=== PATIENT | female | born 1960 | race Caucasian/White ===

== ENCOUNTER 2018-11-17 01:39 | Outpatient (CLI) | payer BC, SELFPAY ==
--- NOTE | 2018-11-17 08:50 | DI.MAMMO_ITS ---
SYMPTOMS/DIAGNOSIS: SCREENING, Z12.31 MAMMOGRAM: Mammograms were interpreted according to the usual protocol including computer analysis with CAD system, tomosynthesis and C view imaging. The breasts are heterogeneously dense. No dominant mass or clumped microcalcification is identified in either breast. The current examination is compared with previous examinations including 06/30 and 09/30, and there has been no gross interval change in appearance in comparison with the previous studies. CONCLUSION: No specific evidence of malignancy at this time. Routine screening examinations are suggested at yearly intervals in this age group according to the ACS/ACR guidelines. Category I. Breast density Category C. MQSA ASSESSMENT OF FINDINGS: Negative. Category 1. Patient will receive a letter notifying them of these results. Bi-RADS category C. The breasts are heterogeneously dense, which may obscure small masses.
[2018-11-17 09:45] LABS: Calculated LDL 81; Cholesterol 173 mg/dL (50-200); HDL Cholesterol 67 mg/dL (40-60); TSH 1.75 uIU/mL (0.358-3.74); Triglyceride 125 mg/dL (30-150)
== END 2018-11-17 01:59 ==
PROVIDERS: PCP Emergency Medicine; Visit Provider Emergency Medicine
DX: Z12.31 Encounter for screening mammogram for malignant neoplasm of breast (principal); E03.9 Hypothyroidism, unspecified
CPT/HCPCS: 36415; 77063; 77067; 80061; 83721; 84443

== ENCOUNTER 2019-11-11 03:26 | Outpatient (CLI) | payer BC, SELFPAY ==
[2019-11-11 12:26] LABS: TSH 2.66 uIU/mL (0.36-3.74)
== END 2019-11-11 03:46 ==
PROVIDERS: PCP Emergency Medicine; Visit Provider Emergency Medicine
DX: E03.9 Hypothyroidism, unspecified (principal)
CPT/HCPCS: 36415; 84443

== ENCOUNTER 2020-09-12 12:47 | Outpatient (REF) | payer BC, SELFPAY ==
[2020-09-12 21:07] LABS: HCT 42.9 % (36.0-46.0); HGB 14.5 g/dL (11.2-15.7); MCHC 33.8 % (32.0-36.0); MCV 91.9 fL (80-95); MPV 11.7 fL (8.0-11.0); Platelet Count 268 10^3/uL (130-400); RBC 4.67 10^6/uL (3.93-5.22); RDW 12.1 % (11.7-14.6); RDW-SD 40.8 fL; WBC 4.98 10^3/uL (4.4-10.8)
[2020-09-12 21:09] LABS: ESR 8 mm//hr (0-30)
[2020-09-12 21:24] LABS: C-Reactive Protein 2.05 mg/dL (0.0-0.3); TSH 2.51 uIU/mL (0.36-3.74)
== END 2020-09-12 12:48 | disposition home or self-care (01) ==
LOC: LBN 12:47
PROVIDERS: PCP Emergency Medicine; Visit Provider Emergency Medicine
DX: E03.9 Hypothyroidism, unspecified (principal); R19.7 Diarrhea, unspecified
CPT/HCPCS: 85027; 85652; 84443; 86140

== ENCOUNTER 2020-09-16 07:17 | Outpatient (REF) | payer BC, SELFPAY | END 2020-09-16 07:18 | disposition home or self-care (01) | LOC: LBN 07:17 | PROVIDERS: PCP Emergency Medicine; Visit Provider Emergency Medicine | DX: R19.7 Diarrhea, unspecified (principal) | CPT/HCPCS: 87329 ==

== ENCOUNTER 2020-10-31 03:26 | Outpatient (CLI) | payer BC, SELFPAY ==
[2020-10-31 08:59] LABS: C-Reactive Protein 0.15 mg/dL (0.0-0.3)
== END 2020-10-31 03:27 | disposition home or self-care (01) ==
PROVIDERS: PCP Emergency Medicine; Visit Provider Emergency Medicine
DX: R19.7 Diarrhea, unspecified (principal)
CPT/HCPCS: 36415; 86140

== ENCOUNTER 2020-12-05 14:12 | Outpatient (REF) | payer BC, SELFPAY ==
--- NOTE | 2020-12-05 13:00 | PAPFT_PTH ---
PATIENT: Melodie Renner LOC: [facility] U#:[id number] AGE/SX: 60/F ROOM: RE12/05/[address]: Shoaib Mon DO : 1960 BED: DIS: 12/05/2020 SPEC #: [id number] RECD: 12/05/20 18:37 STATUS: JOVON RESally #: [id number] KELLEE: 12/05/20 13:[address]: Shoaib Mon DEPT: [facility] Cytology RECD BY: Misty Black Tissues: 1 - CX/ENDOCX FOR PAP SMEARS Procedures: PAP THIN PREP/UVM Screening HPV DNA PROBE Comments: [id number]
== END 2020-12-05 14:13 | disposition home or self-care (01) ==
LOC: LBN 14:12
PROVIDERS: PCP Emergency Medicine; Visit Provider Emergency Medicine
DX: Z12.4 Encounter for screening for malignant neoplasm of cervix (principal); Z11.51 Encounter for screening for human papillomavirus (HPV)
CPT/HCPCS: 88142; 87624

== ENCOUNTER 2020-12-21 01:29 | Outpatient (CLI) | payer BC, SELFPAY ==
--- NOTE | 2020-12-21 08:25 | DI.MAMMO_ITS ---
Exam(s) MAMMO SCREENING EXAM: MAMMO SCREENING CLINICAL HISTORY: screening,Z12.39 TECHNIQUE: Mammograms were interpreted according to the usual protocol including computer analysis w [employer] CAD system, tomosynthesis and C-view imaging. COMPARISON: 2010 through 2018 FINDINGS: The breasts are composed of heterogeneously dense fibroglandular densities, Breast Density category C . No suspicious masses or suspicious microcalcifications are seen. No skin thickening or abnormal axillary lymph nodes are seen. There has been no significant change from prior exams. IMPRESSION: BI-RADS Category 1, Negative mammogram. Yearly screening mammography is recommended. Breast Density Category C, heterogeneously Dense. The mammogram demonstrates the patient's breast tissue is dense. Dense breast tissue is very common a nd is not abnormal but dense breast tissue can make it harder to find cancer on a mammogram. Also, de nse breast tissue may increase breast cancer risk. This information about the result of the mammogram report was provided to the patient to raise their awareness. Use this report when you speak with the patient about their risks for breast cancer, which includes their family history. At that time, you may recommend additional screening tests (Ultrasound or MRI) as they might be useful based on their r isk. A negative radiographic report should not delay biopsy if a dominant or clinically suspicious mass is present. Up to ten percent of cancers are not identified on mammography. A negative report may reinforce clinical impression. Adenosis and dense breasts may obscure an underlying neoplasm. False positive reports average 6 to 10%.
== END 2020-12-21 01:49 ==
PROVIDERS: PCP Emergency Medicine; Visit Provider Emergency Medicine
DX: Z12.31 Encounter for screening mammogram for malignant neoplasm of breast (principal); R92.8 Other abnormal and inconclusive findings on diagnostic imaging of breast
CPT/HCPCS: 77063; 77067

== ENCOUNTER 2022-01-15 03:17 | Outpatient (CLI) | payer BC, SELFPAY ==
[2022-01-15 13:13] LABS: TSH (W/Ref FT4) 2.57 uIU/mL (0.36-3.74)
== END 2022-01-15 03:18 | disposition home or self-care (01) ==
LOC: LOS 03:18
PROVIDERS: PCP Family Medicine; Visit Provider Family Medicine
DX: E03.9 Hypothyroidism, unspecified (principal)
CPT/HCPCS: 36415; 84443

== ENCOUNTER 2022-05-22 10:24 | Outpatient (CLI) | payer BC, SELFPAY ==
[2022-05-22 14:39] LABS: HCT 41.2 % (36.0-46.0); HGB 14.1 g/dL (11.2-15.7); MCH 31.1 pg (27.0-33.0); MCHC 34.2 % (32.0-36.0); MCV 91 fL (80-95); MPV 10.3 fL (8.0-11.0); Platelet Count 276 10^3/uL (130-400); RBC 4.54 10^6/uL (3.93-5.22); RDW 12.3 % (11.7-14.6); RDW-SD 40.4 fL; WBC 8.69 10^3/uL (4.4-10.8)
[2022-05-22 15:25] LABS: Anion Gap 6.8 mmol/L (3-11); BUN 33 mg/dL (7-18); CO2 30.2 mmol/L (21.0-32.0); CREATININE 1.1 mg/dL (0.55-1.02); Chloride 104 mmol/L (98-107); Estimated GFR 56.46 (mL/min/1.73m2); FREE T4 1.01 ng/dL (0.76-1.46); Glucose 58 mg/dL (74-106); Potassium 4.3 mmol/L (3.5-5.1); Sodium 141 mmol/L (136-145); TSH 3.22 uIU/mL (0.36-3.74)
== END 2022-05-22 10:25 | disposition home or self-care (01) ==
LOC: LBO 10:25
PROVIDERS: PCP Family Medicine; Visit Provider Nurse Practitioner Family
DX: R23.2 Flushing (principal)
CPT/HCPCS: 36415; 80048; 85027; 84439; 84443

== ENCOUNTER 2022-05-27 03:13 | Outpatient (CLI) | payer BC, SELFPAY ==
[2022-05-27 14:25] LABS: Hemoglobin A1C 5.4 % (<5.7)
[2022-05-27 14:51] LABS: Glucose 74 mg/dL (74-106)
== END 2022-05-27 03:14 | disposition home or self-care (01) ==
LOC: LBO 03:14
PROVIDERS: Nurse Practitioner Family; PCP Family Medicine; Visit Provider Family Medicine
DX: E16.2 Hypoglycemia, unspecified (principal); E03.9 Hypothyroidism, unspecified
CPT/HCPCS: 36415; 82947; 83036

== ENCOUNTER 2023-05-05 22:14 | Outpatient (REF) | payer BC, SELFPAY | END 2023-05-05 22:15 | disposition home or self-care (01) | LOC: NCHCN 22:14 | PROVIDERS: PCP Family Medicine; Visit Provider Physician Assistant | DX: J02.9 Acute pharyngitis, unspecified (principal) | CPT/HCPCS: 87070 ==

== ENCOUNTER 2023-08-21 10:20 | Outpatient (REF) | payer BC, SELFPAY | END 2023-08-21 10:21 | disposition home or self-care (01) | LOC: LBN 10:20 | PROVIDERS: PCP Family Medicine; Referring Provider Nurse Practitioner Family; Visit Provider Nurse Practitioner Family | DX: R30.0 Dysuria (principal); N39.0 Urinary tract infection, site not specified | CPT/HCPCS: 87077; 87086; 87186 ==

== ENCOUNTER 2023-09-15 05:40 | Outpatient (CLI) | payer BC, SELFPAY ==
[2023-09-15 13:04] LABS: ALT 42 U/L (14-59); AST 28 U/L (15-37); Albumin 3.5 g/dL (3.4-5.0); Alkaline Phosphatase 81 U/L (46-116); Anion Gap 7.7 mmol/L (3-11); BUN 17 mg/dL (7-18); Bilirubin, Total 0.5 mg/dL (0.2-1.0); CO2 29.3 mmol/L (21.0-32.0); CREATININE 0.9 mg/dL (0.55-1.02); Calcium 9.1 mg/dL (8.5-10.1); Calculated LDL 106 mg/dL (<100); Chloride 109 mmol/L (98-107); Cholesterol 182 mg/dL (<200); Estimated GFR 71.39 (mL/min/1.73m2); Glucose 95 mg/dL (74-106); HDL Cholesterol 67 mg/dL (40-60); Potassium 4.6 mmol/L (3.5-5.1); Sodium 146 mmol/L (136-145); TSH (W/Ref FT4) 2.55 uIU/mL (0.36-3.74); Total Protein 7.2 g/dL (6.4-8.2); Triglyceride 49 mg/dL (<150)
== END 2023-09-15 05:41 | disposition home or self-care (01) ==
PROVIDERS: PCP Family Medicine; Visit Provider Family Medicine
DX: E03.9 Hypothyroidism, unspecified (principal); Z00.00 Encounter for general adult medical examination without abnormal findings; Z13.6 Encounter for screening for cardiovascular disorders
CPT/HCPCS: 36415; 80053; 80061; 84443

== ENCOUNTER → 2023-09-17 01:13 | Outpatient (CLI) | payer BC, SELFPAY ==
--- NOTE | 2023-09-17 12:15 | DI.MAMMO_ITS ---
Exam(s) MAMMO SCREENING EXAM: MAMMO SCREENING CLINICAL HISTORY: screening,z12.39 TECHNIQUE: Bilateral full field digital CC and MLO mammographic images were obtained with 3D tomosyn thesis and utilizing computer aided detection (CAD). COMPARISON: Available for comparison. FINDINGS: Masses/Architectural Distortion: None seen. Microcalcifications: No suspicious pleomorphic-type are seen. Skin Thickening/Nipple Retraction: None. IMPRESSION: 1. No significant interval change with no specific features of malignancy noted. 2. Unless there is more urgent need, screening mammography is recommended, as per [employer] guidelines. BI-RADS Category 1 - Negative Breast Density - Category C - Heterogeneously dense Breast density category C or D implies that the patient has dense breast tissue. Dense breast tissue is very common and is not abnormal but dense breast tissue can make it harder to find cancer on a ma mmogram. Also, dense breast tissue may increase their breast cancer risk. This information about the result of the mammogram report was provided to the patient to raise their awareness. Use this report when you speak with the patient about their risks for breast cancer, which includes their family hist ory. At that time, you may recommend for more screening tests (Ultrasound or MRI) as they might be us eful based on their risk. A negative radiographic report should not delay biopsy if a dominant or clinically suspicious mass is present. Up to ten percent of cancers are not identified on mammography. A negative report may reinforce clinical impression. Adenosis and dense breasts may obscure an underlying neoplasm. False positive reports average 6 to 10%. Patient will receive a letter notifying them of these results.
== END ==
PROVIDERS: PCP Family Medicine; Visit Provider Family Medicine
DX: Z12.31 Encounter for screening mammogram for malignant neoplasm of breast (principal)
CPT/HCPCS: 77063; 77067

== ENCOUNTER → 2023-12-22 02:23 | Outpatient (CLI) | payer BC, SELFPAY ==
--- NOTE | 2023-12-22 08:00 | DI.MRI_ITS ---
Exam(s) MR LOWER EXTREMITY RT WO EXAM: MR LOWER EXTREMITY RT WO CLINICAL HISTORY: proximal right hamstring strain, S76.311A TECHNIQUE: Multiplanar multisequence MRI was performed without intravenous contrast. COMPARISON: No exams were available for comparison FINDINGS: BONES/JOINTS: No fracture or contusion pattern. No bone lesions identified. MUSCULOTENDINOUS STRUCTURES: There is hyperintense signal within the hamstring tendon at the ischial tuberosity consistent with a partial tear. No muscular fatty atrophy. SOFT TISSUES: There is mild edema in the surrounding soft tissues at the proximal hamstring tendon. OTHER FINDINGS: None. IMPRESSION: Large partial tear of the hamstring tendon at its insertion site onto the ischial tuberosity. DATA REPOSITORY:
== END ==
PROVIDERS: PCP Family Medicine; Visit Provider Family Medicine
DX: S76.311A Strain of muscle, fascia and tendon of the posterior muscle group at thigh level, right thigh, initial encounter (principal); M79.89 Other specified soft tissue disorders
CPT/HCPCS: 73718

== ENCOUNTER → 2024-01-20 07:51 | Outpatient (BNVA) | payer MEDICARE, BC, SELFPAY | PROVIDERS: PCP Family Medicine; Referring Provider Family Medicine; Visit Provider Student in an Organized Health Care Education/Training Program | DX: S76.311A Strain of muscle, fascia and tendon of the posterior muscle group at thigh level, right thigh, initial encounter (principal); X50.0XXA Overexertion from strenuous movement or load, initial encounter; Y93.B9 Activity, other involving muscle strengthening exercises | CPT/HCPCS: 99203 ==

== ENCOUNTER → 2024-04-21 08:04 | Outpatient (BNVA) | payer MEDICARE, BC, SELFPAY | PROVIDERS: PCP Family Medicine; Referring Provider Family Medicine; Visit Provider Student in an Organized Health Care Education/Training Program | DX: S76.311D Strain of muscle, fascia and tendon of the posterior muscle group at thigh level, right thigh, subsequent encounter (principal); X58.XXXD Exposure to other specified factors, subsequent encounter | CPT/HCPCS: 99213 ==

== ENCOUNTER 2024-05-17 13:19 | Outpatient (CLI) | payer MEDICARE, BC, SELFPAY ==
--- NOTE | 2024-05-17 11:00 | DI.MRI_ITS ---
Exam(s) MR LOWER JOINT RT WO EXAM: MR LOWER JOINT RT WO CLINICAL HISTORY: Recurrent proximal hamstring injury,tendon rupture,S76,311a TECHNIQUE: Multiplanar multisequence MRI of right hip was performed COMPARISON: CR BILATERAL HIPS ADULT from 05/04/2012 MR MR LOWER EXTREMITY RT WO from 12/22/2023 FINDINGS: Bones: There is no evidence of a fracture or avascular necrosis. No significant joint effusion or l abral injury is present. No bone marrow edema is seen. There is a subchondral cyst seen in the right acetabular roof. There is otherwise normal marrow signal. Musculotendinous structures: There is a complete tear of the hamstring tendon at its insertion site on the ischial tuberosity. There is a gap of 1-2 cm between the tendon ends and the ischial tuberosit y. Intrapelvic structures demonstrate no significant abnormality. IMPRESSION: There is a complete tear of the right hamstring tendon at its insertion site onto the right ischial t uberosity. DATA REPOSITORY:
== END 2024-05-17 13:39 ==
PROVIDERS: PCP Family Medicine; Visit Provider Student in an Organized Health Care Education/Training Program
DX: S76.311D Strain of muscle, fascia and tendon of the posterior muscle group at thigh level, right thigh, subsequent encounter (principal); X58.XXXD Exposure to other specified factors, subsequent encounter
CPT/HCPCS: 73721

== ENCOUNTER 2024-09-29 02:24 | Outpatient (CLI) | payer MEDICARE, BC, SELFPAY ==
[2024-09-29 15:52] LABS: TSH (W/Ref FT4) 2.97 uIU/mL (0.36-3.74)
== END 2024-09-29 02:25 | disposition home or self-care (01) ==
PROVIDERS: PCP Family Medicine; Visit Provider Family Medicine
DX: E03.9 Hypothyroidism, unspecified (principal)
CPT/HCPCS: 36415; 84443

== ENCOUNTER 2024-10-25 01:47 | Outpatient (CLI) | payer MEDICARE, BC, SELFPAY ==
--- NOTE | 2024-10-25 06:30 | DI.DEXA_ITS ---
Exam(s) XR DEXA BONE DENSITY W/WO SHERYL EXAM: XR DEXA BONE DENSITY W/WO SHERYL CLINICAL HISTORY: Screening for osteoporosis, menopausal disorder, n95.0 TECHNIQUE: COMPARISON: No exams were available for comparison FINDINGS: Lateral Spine Image: Unremarkable. No compression deformities identified. Left hip: Total T-Score: -1.4 Total Z-Score: -0.2 T- and Z-scores: Findings are consistent with osteopenia. Lumbar Spine: Total T-Score: 0.1 Total Z-Score: 1.9 T- and Z-scores: Within normal limits. Note is made of osteoporosis in the left forearm with a total T-score of -2.5 and a Z-score of -0.9. IMPRESSION: Osteoporosis in the left forearm.
== END 2024-10-25 02:07 ==
LOC: DI 01:47
PROVIDERS: PCP Family Medicine; Visit Provider Family Medicine
DX: N95.9 Unspecified menopausal and perimenopausal disorder (principal); Z13.820 Encounter for screening for osteoporosis
CPT/HCPCS: 77080

== ENCOUNTER 2025-04-08 00:08 | Outpatient (CLI) | payer MEDICARE, BC, SELFPAY ==
[2025-04-08 14:12] LABS: Abs Immature Grans 0.00 10^3/uL (0.0-0.06); HCT 40.5 % (36.0-46.0); HGB 14.0 g/dL (11.2-15.7); Immature Grans % 0.0 %; MCH 30.7 pg (27.0-33.0); MCHC 34.6 % (32.0-36.0); MCV 89 fL (80-95); MPV 10.9 fL (8.0-11.0); Platelet Count 300 10^3/uL (130-400); RBC 4.56 10^6/uL (3.93-5.22); RDW 12.3 % (11.7-14.6); RDW-SD 40.5 fL; WBC 7.94 10^3/uL (4.4-10.8)
[2025-04-08 14:50] LABS: ALT 51 U/L (14-59); AST 53 U/L (15-37); Albumin 3.5 g/dL (3.4-5.0); Alkaline Phosphatase 80 U/L (46-116); Anion Gap 9.7 mmol/L (3-11); BUN 19 mg/dL (7-18); Bilirubin, Total 0.4 mg/dL (0.2-1.0); CO2 26.3 mmol/L (21.0-32.0); Calcium 9.2 mg/dL (8.5-10.1); Chloride 104 mmol/L (98-107); Estimated GFR 70.51 (mL/min/1.73m2); Glucose 86 mg/dL (74-106); Potassium 3.8 mmol/L (3.5-5.1); Sodium 140 mmol/L (136-145); Total Protein 7.3 g/dL (6.4-8.2); Vitamin B12 713 pg/mL (193-986)
== END 2025-04-08 00:09 | disposition home or self-care (01) ==
LOC: LOS 00:08
PROVIDERS: PCP Family Medicine; Visit Provider Family Medicine
DX: R53.83 Other fatigue (principal); Z00.00 Encounter for general adult medical examination without abnormal findings
CPT/HCPCS: 36415; 80053; 82607; 85025

== ENCOUNTER → 2025-05-24 00:27 | Outpatient (CLI) | payer MEDICARE, BC, SELFPAY ==
--- NOTE | 2025-05-24 15:02 | DI.CT_ITS ---
Exam(s) CT SINUS WO EXAM: CT SINUS WO CLINICAL HISTORY: chronic sinusitis,RHINOSINUSITIS,J32.9,. Evaluate for sinusitis. TECHNIQUE: Imaging Protocol: Axial computed tomography images with coronal and sagittal reformatted images were created and reviewed. COMPARISON: CT CT SINUS WO from 07/11/2023 FINDINGS: Frontal sinuses: Normally aerated. Ethmoid air cells: Normally aerated. Maxillary sinuses: There is mucous retention left maxillary sinus, similar quantity to the prior exam however there are now some air bubbles. The right maxillary sinus is normally aerated. Sphenoid sinuses: Normally aerated. Ostiomeatal complexes: Patent. Nasal cavity: Septum is mildly deviated toward the left with a spur. No visible polyps. Visualized regional soft tissues: No acute findings. Orbits: Unremarkable. Bones: Unremarkable. Mastoid Air Cells: Normally aerated. Visualized portions of the brain: Unremarkable as visualized. IMPRESSION: [id number] mucous retention in the left maxillary sinus. This sinuses are otherwise clear. RADIATION DOSE DELIVERED: 105.49mGy.cm Total DLP DATA REPOSITORY: All CT scans at this facility are submitted to the National Radiology Data Registry (NRDR) Dose Index Registry (DIR) with the [employer] (ACR). RADIATION OPTIMIZATION: All CT scans at this facility use at least one of these dose optimization techniques: automated exposure control; mA and/or kV adjustment per patient size (includes targeted exams where dose is matched to clinical indication); or iterative reconstruction.
== END ==
LOC: DI 00:27
PROVIDERS: PCP Family Medicine; Visit Provider Family Medicine
DX: J32.0 Chronic maxillary sinusitis (principal)
CPT/HCPCS: 70486